=== PATIENT | male | born 1975 | race Caucasian/White ===

== ENCOUNTER 2021-08-21 07:32 | Emergency (ER) | payer OTHER ==
[~2021-08-21] VITALS: Ht 177.8 cm; Wt 113.4 kg
[2021-08-21 07:35] VITALS: BP_SYST 158
--- NOTE | 2021-08-21 07:35 | NUR ---
Pt to bed 7 for evaluation.
--- NOTE | 2021-08-21 07:40 | NUR ---
Pt AAO and ambulatory reporting an acute onset of left-sided flank pain x 1 day. Pt reports nausea and vomiting with one episode of vomiting upon arrival to ED. Pt reports 9/10 pain scale currently. Pt denies any past medical history.
--- NOTE | 2021-08-21 08:30 | NUR ---
Dr. Marsh at bedside to assess.
--- NOTE | 2021-08-21 08:44 | NUR ---
# 20 gauge angiocath placed to Left AC. Use of asceptic technique. Opsite placed over site. Blood return noted. Blood for lab drawn from site. Flushed with 10 cc of normal saline. No evidence of infiltration noted. Patient tolerated well.
[2021-08-21] MEDS ORDERED: KETOROLAC TROMETHAMINE 30 MG VIAL IVP ONE (08:45)
[2021-08-21] MEDS ORDERED: NACL 0.9% 1,000 ML IV ONE ×2 (08:45)
[2021-08-21] MEDS ORDERED: ONDANSETRON HCL 4 MG/2 ML VIAL IVP ONE (08:45)
[2021-08-21] MEDS ORDERED: MORPHINE 4 MG INJ. 4 MG/ML VIAL IVP ONE (08:45)
--- NOTE | 2021-08-21 08:55 | NUR ---
Pt to CT Scan by wheelchair.
[2021-08-21 08:56] LABS: BASOPHILS # (AUTO) 0.1 K/uL (0.0-0.2); BASOPHILS % (AUTO) 0.8 % (0.0-2.0); EOSINOPHILS # (AUTO) 0.2 K/uL (0.0-0.4); EOSINOPHILS % (AUTO) 2.5 % (0.0-4.0); HEMOGLOBIN 14.2 g/dL (14.0-18.0); MEAN CORPUSCULAR HEMOGLOBIN 29 pg (27-31); MEAN CORPUSCULAR HGB CONC 34 % (32-36); MEAN CORPUSCULAR VOLUME 84 fL (79.0-98.0); MONOCYTES # (AUTO) 0.5 K/uL (0.0-1.0); MONOCYTES % (AUTO) 5.6 % (1.7-9.3); NEUTROPHILS # (AUTO) 5.7 K/uL (1.8-7.7); NEUTROPHILS % (AUTO) 67.1 % (40.0-70.0); PLATELET COUNT (AUTO) 196 K/uL (130-430); RED BLOOD CELL COUNT(AUTO) 4.99 MIL/uL (4.2-6.2); RED CELL DISTRIBUTION WIDTH 13.6 % (9.0-15.0); WHITE BLOOD COUNT (AUTO) 8.5 K/uL (4.8-10.8)
--- NOTE | 2021-08-21 09:05 | NUR ---
Pt back from CT Scan to [facility].
--- NOTE | 2021-08-21 09:10 | NUR ---
Medicated pt with 4mg Morphine IVP for 9/10 pain scale. Returned the other 4 mg vial to [facility].
[2021-08-21 09:28] LABS: CALCIUM 8.6 mg/dL (8.4-11.0); CREATININE 1.03 mg/dL (0.55-1.30); POTASSIUM 4.1 mmol/L (3.5-5.1)
[2021-08-21] MEDS ORDERED: MORPHINE 2 MG/ML INJ. SYRINGE IVP ONE (09:30)
[2021-08-21 09:33] LABS: ALBUMIN 3.7 g/dL (3.4-4.8); TOTAL BILIRUBIN 0.4 mg/dL (0.0-1.0)
--- NOTE | 2021-08-21 10:00 | NUR ---
Pt pain improved significantly, down to 3/10. Pt reports that pain is tolerable.
--- NOTE | 2021-08-21 10:15 | NUR ---
Pt provided urine sample by urinal. Urine sent to lab for analysis.
[2021-08-21 10:38] LABS: BILIRUBIN,URINE NEGATIVE (NEGATIVE); BLOOD, URINE 3+ (NEGATIVE); COLOR,URINE YELLOW (YELLOW); GLUCOSE,URINE NEGATIVE (NEGATIVE); KETONES,URINE NEGATIVE (NEGATIVE); LEUKOCYTE ESTERASE ,URINE NEGATIVE (NEGATIVE); NITRITE, URINE NEGATIVE (NEGATIVE); PH,URINE 5.5 (5.0-8.0); PROTEIN URINE NEGATIVE (NEGATIVE); UROBILINOGEN,URINE 0.2 (0.2-1.0)
[2021-08-21 10:46] LABS: CLARITY/URINE SLIGHTLY HAZY (CLEAR)
[2021-08-21 11:17] LABS: BACTERIA,URINE RARE /HPF (None Seen); WBC,URINE 0-3 /HPF (0-3)
--- NOTE | 2021-08-21 11:45 | NUR ---
Pt resting quietly in no distress awaiting disposition.
[2021-08-21] MEDS ORDERED: ONDA-8 TL (12:15)
[2021-08-21] MEDS ORDERED: OXYC-128 PO (12:15)
[2021-08-21 12:45] VITALS: BP_SYST 158
--- NOTE | 2021-08-21 12:45 | NUR ---
Patient given written and verbal discharge instructions and verbalizes understanding. Dr. Salma ELLER MD discussed with patient the results and treatment provided. Patient in stable condition. ID arm band removed. IV catheter removed intact and dressing applied, no active bleeding. Rx per MD. Patient educated on pain management and to follow up with PMD. Pain Scale 0/10. Opportunity for questions provided and answered.
== END 2021-08-21 12:30 | disposition home or self-care (01) ==
LOC: SED 07:32
DX: N20.1 Calculus of ureter (principal)
CPT/HCPCS: 36415; 74176; 76376; 80053; 81000; 85025; 96361; 96374; 96375; 99284; J1885; J2270 ×2; J2405; J7030